=== PATIENT | male | born 1955 | race Caucasian/White ===

== ENCOUNTER 2020-02-07 13:11 | Observation (INO) ==
--- NOTE | 2020-02-07 13:55 | Emergency Department Note ---
Impression & Plan Atypical chest pain, History of two vessel coronary artery bypass graft ED Provider Note NAME: PARISH GREENBERG AGE: 64 SEX: M : 1955 ARRIVES VIA: Walk-In INFORMANT: Patient, ED PROVIDER(S): Foreign Arambula MD Chief Complaint: Chest discomfort HPI: Patient does present with some left-sided chest discomfort. The patient noticed that this morning. The patient does not complain of shortness of breath. The patient states he has been maintaining good diet and been compliant with medications. The patient states that he was in [facility] had a cardiac cath at that time and due to the severity of his disease the patient was transferred to an adjoining hospital in [facility] for a cardiac bypass. The patient denies any nausea vomiting or diaphoresis. The patient just feels as though there is a change in the left chest. The patient denies any fevers or chills. [facility] the area as the patient is from [place]. The patient denies any change in any leg swelling. The patient does not have any exertional dyspnea but has occasionally felt weak and fatigued. Patient believes that his surgical sites are healing well. ROS: See HPI for pertinent positives and negatives. A total of 10 systems were reviewed and otherwise negative. Past medical history: See below Surgical history: See below Social history: See below Physical Exam: GENERAL: Wearing glasses and a mask, NAD, non-toxic. EYE EXAM: Normal conjunctiva. PERRL, no anisocoria and EOM's grossly intact w/o pain. Chest: Midline sternotomy well-healed with no evidence of fluctuance drainage or redness. NECK: Supple, no nuchal rigidity, no adenopathy, non-tender. No signs of meningismus. LUNGS: Clear to auscultation. Normal chest wall mechanics. HEART: NSR, no MRG. ABDOMEN: Abdomen soft, non-tender, normo-active bowel sounds, no masses, no rebound or guarding. Several upper abdominal eschars healing without drainage or redness or fluctuance. BACK: No CVA TTP. SKIN: No rashes and no bruising. UPPER EXTREMITIES: Upper extremities are grossly normal. LOWER EXTREMITIES: Grossly normal, 1+ bilateral lower extremity edema without erythema that is symmetric. NEURO EXAM: A&O x3, cranial nerves II-XII grossly intact, normal speech, moves all 4 extremities on command w/o issue. Differential diagnoses: Cardiac ischemia, aortic dissection, pulmonary embolism, pneumothorax, pneumonia, pericarditis, myocarditis, esophageal rupture, GERD, cholecystitis, pancreatitis, musculoskeletal, as well as other pathologies. Course: Patient was seen and evaluated the bedside. Full history physical exam was performed. EKG: Indication: Chest discomfort Sinus rhythm with occasional fusion complexes, rate of 81, normal intervals, left axis deviation, no obvious elevations or depressions. Q waves in lateral leads. No prior EKGs for comparison. Imaging Studies: Radiology results as stated below per my review in the radiologist's interpretation: XR chest 1V portable CLINICAL HISTORY: Chest Pain pain COMPARISON STUDY: No previous studies for comparison. FINDINGS: Moderate cardiomegaly. Prior median sternotomy. Lungs are clear. Diaphragms are smooth. IMPRESSION: Moderate cardiomegaly. Otherwise negative study. ACT 112: Negative or not required by law. The above report was generated using voice recognition software. It may contain grammatical, syntax or spelling errors. Electronically signed by: Jatin Huggins M.D. 02/07/2020 2:38 PM Dictated: 02/07/20 1437 Transcribed: 02/07/20 1437 Cardiac monitoring: An order was placed for continuous cardiac monitoring. The monitor shows a rate of 90 with sinus rhythm. Procedures: Limited Point of Care Cardiac Ultrasound performed by me: Indication: Chest discomfort Findings: Limited echocardiography primarily just with an apical view revealed no obvious pericardial fluid. HR 80s. Additional findings: No obvious septal bowing. Impression: No obvious pericardial effusion MDM: Patient did present with concern for chest discomfort. Patient is recent CABG. Blood work was obtained along with an EKG and troponin. Patient was also given full dose aspirin and sublingual nitro as needed. The patient does have a mild white count of 13 but denies infectious symptoms. Mild elevation of platelet count. Patient's kidney function creatinine clearance 67 creatinine 1.5. Unknown as to what his prior is. BNP is not elevated. Troponin is not detectable. EKG with no discernible is acute ischemic change with the patient does have some Q waves. Given the patient's prior history this may be consistent with that. I did attempt to pursue performing limited [id number] cardiac ultrasound. Technically limited and difficult study but based on a somewhat limited four-chamber view the patient does not have evidence of obvious pericardial effusion. Patient did feel improved after his medications have been received. Patient did have some cardiomegaly but unsure as to what his prior is. The patient has not tachypneic nor hypoxic and has not complained of shortness of breath. Patient is not tachycardic but is on rate control medication. Given the patient's high risk na ture recent CABG and chest discomfort will be admitted for formal echo as well as trending of his cardiac enzymes. Patient is currently comfortable. I did speak with the on-call hospitalist Dr. Tobin and the patient was admitted to the medicine service. Past Med/Surg History Medical History CAD (coronary artery disease) of artery bypass graft H/O: HTN (hypertension) Hyperlipidemia Surgical History S/P CABG (coronary artery bypass graft) Social History (Updated 02/07/20 @ 14:07 by Foreign Arambula MD) Preferred Language: Icelandic Communication Ability: Effective Feels Safe at Home: Yes Smoking Status: Never smoker Hx Alcohol Use: No Hx Substance Use: No Allergies Allergies Allergy/AdvReac Type Severity Reaction Status Date / Time Penicillins Allergy turns red Verified 02/07/20 16:05 , throat swells Home Meds Home Medications Medication Instructions Recorded Confirmed acetaminophen [Tylenol] 650 mg PO QID PRN 02/07/20 02/07/20 aspirin 325 mg PO DAILY 02/07/20 02/07/20 atorvastatin 40 mg PO HS 02/07/20 02/07/20 bisacodyl [Dulcolax (bisacodyl)] 5 mg PO DAILY PRN 02/07/20 02/07/20 lisinopril 2.5 mg PO DAILY 02/07/20 02/07/20 metoprolol tartrate 12.5 mg PO Q12 02/07/20 02/07/20 nitroglycerin [Nitrostat] 0.4 mg SUBLINGUAL UD PRN 02/07/20 02/07/20 tramadol 50 mg PO Q4 PRN 02/07/20 02/07/20 Results & Data (ED) Vital Signs Vital Signs - 24 hr 02/07/20 13:43 02/07/20 14:00 02/07/20 14:30 Temperature 37.2 C Temperature Source Oral Pulse Rate 90 76 Pulse Rate [Left Finger] Pulse Rate from SpO2 Sensor 77 Respiratory Rate 20 20 Respiratory Effort / Characteristics Non-Labored Respiratory Depth Normal Blood Pressure 109/74 133/90 Blood Pressure [Left Arm] Blood Pressure Mean 85 103 Blood Pressure Mean [Left Arm] Pulse Oximetry 93 96 Oxygen Delivery Method Room Air Sepsis Recent Fever Within 48 Hours No Sepsis New/Unexplained Change in Mental Status N/A Sepsis Action Taken by Nursing No Action Required 02/07/20 15:09 02/07/20 17:09 Temperature Temperature Source Pulse Rate Pulse Rate [Left Finger] 84 86 Pulse Rate from SpO2 Sensor Respiratory Rate 23 18 Respiratory Effort / Characteristics Respiratory Depth Blood Pressure Blood Pressure [Left Arm] 119/70 122/76 Blood Pressure Mean Blood Pressure Mean [Left Arm] 86 91 Pulse Oximetry 95 98 Oxygen Delivery Method Sepsis Recent Fever Within 48 Hours Sepsis New/Unexplained Change in Mental Status Sepsis Action Taken by Alf Medications Current Medication List: was personally reviewed by me Laboratory Data Attestation: I reviewed the patient's lab results. Result diagrams: 02/07/20 13:57 02/07/20 13:57 Lab Results 02/07/20 02/07/20 02/07/20 Range/Units 13:57 13:57 13:57 WBC 13.66 H (4.8-10.8) K/uL RBC 4.93 (4.7-6.1) M/uL Hgb 14.5 (14.0-18.0) g/dL Hct 42.2 (42-52) % MCV 85.6 (80-100) fL MCH 29.4 (25-34) pg MCHC 34.4 (32-36) g/dL RDW Std Deviation 40.7 (36.4-46.3) fL RDW Coeff of Hector 13.1 (11.5-14.5) % Plt Count 496 H (130-400) K/uL MPV 9.4 (7.4-10.4) fL Immature Gran % (Auto) 0.3 % Neut % (Auto) 77.6 % Lymph % (Auto) 12.6 % Barry % (Auto) 6.1 % Eos % (Auto) 3.0 % Baso % (Auto) 0.4 % Neut # (Auto) 10.61 H (1.4-6.5) K/uL Lymph # (Auto) 1.72 (1.2-3.4) K/uL Barry # (Auto) 0.83 H (0.11-0.59) K/uL Eos # (Auto) 0.41 (0-0.5) K/uL Baso # (Auto) 0.05 (0-0.2) K/uL Immature Gran # (Auto) 0.04 H (0.00-0.02) K/uL PT 12.3 H (9.0-12.0) Seconds INR 1.2 H (0.9-1.1) APTT 29.4 (21.0-31.0) Seconds PTT Ratio 1.1 Sodium 139 (136-145) mmol/L Potassium 4.5 (3.5-5.1) mmol/L Chloride 108 H (98-107) mmol/L Carbon Dioxide 24 (21-32) mmol/L Anion Gap 7.0 (3-11) BUN 15 (7-18) mg/dl Creatinine 1.50 H (0.6-1.4) mg/dl Est Cr Clr Drug Dosing 67.1 ml/min Est GFR ( Amer) 55.8 Est GFR (Non-Af Amer) 48.2 BUN/Creatinine Ratio 10.2 (10-20) Glucose 99 (70-99) mg/dl Calcium 9.4 (8.5-10.1) mg/dl Phosphorus 3.3 (2.5-4.9) mg/dl Magnesium 2.3 (1.8-2.4) mg/dl Total Bilirubin 0.5 (0.2-1) mg/dl AST 21 (15-37) U/L ALT 46 (12-78) U/L Alkaline Phosphatase 90 (45-117) U/L Total Creatine Kinase 56 (39-308) U/L Troponin I < 0.015 (0-0.045) ng/ml NT-Pro-B Natriuret Pep 847 (0-900) pg/ml Total Protein 7.9 (6.4-8.2) gm/dl Albumin 3.5 (3.4-5.0) gm/dl Globulin 4.4 H (2.5-4.0) gm/dl Albumin/Globulin Ratio 0.8 L (0.9-2) Lipase 131 (73-393) U/L Administered Medications Nitroglycerin (Nitrostat) 0.4 mg SL UD PRN PRN Reason: Chest Pain Stop: 03/08/20 14:18 Last Admin: 02/07/20 14:31 Dose: 0.4 mg Documented by: [id number] Discontinued Medications Aspirin (Aspirin) 324 mg PO NOW STA Stop: 02/07/20 14:20 Last Admin: 02/07/20 14:31 Dose: 324 mg Documented by: [id number] Discharge Plan Visit Data Chief Complaint: Cardiac Assessment Stated Complaint: CARDIAC ASSESSMENT ED Provider: Foreign Arambula Discharge Problem: Atypical chest pain, History of two vessel coronary artery bypass graft Forms Stand Alone Forms: [employer] Prescriptions Prescriptions: No Action atorvastatin 40 mg Tablet 40 mg PO HS RF: 0 acetaminophen [Tylenol] 325 mg Tablet 650 mg PO QID PRN (Reason: Pain) RF: 0 tramadol 50 mg Tablet 50 mg PO Q4 PRN (Reason: Pain) RF: 0 aspirin 325 mg Tablet,Delayed Release (Dr/Ec) 325 mg PO DAILY RF: 0 nitroglycerin [Nitrostat] 0.4 mg Tablet, Sublingual 0.4 mg sublingual UD PRN (Reason: Chest Pain) RF: 0 bisacodyl [Dulcolax (bisacodyl)] 5 mg Tablet,Delayed Release (Dr/Ec) 5 mg PO DAILY PRN (Reason: Constipation) RF: 0 lisinopril 2.5 mg Tablet 2.5 mg PO DAILY RF: 0 metoprolol tartrate 25 mg Tablet 12.5 mg PO Q12 RF: 0
[2020-02-07] MEDS ORDERED: ASPIRIN CHEW 324 MG PO STA (14:19)
[2020-02-07] MEDS ORDERED: NITROGLYCERIN SL 0.4 MG/TAB TAB SL PRN ×2 (14:19→18:47)
[2020-02-07 14:27] LABS: Basophils # (auto) 0.05 K/uL (0-0.2); Basophils % (auto) 0.4 %; Eosinophils # (auto) 0.41 K/uL (0-0.5); Hematocrit (blood only) 42.2 % (42-52); Hemoglobin 14.5 g/dL (14.0-18.0); Immature Granulocytes # (auto) 0.04 K/uL (0.00-0.02); Immature Granulocytes % (auto) 0.3 %; Lymphocytes # (auto) 1.72 K/uL (1.2-3.4); Lymphocytes % (auto) 12.6 %; Mean Corpuscular Hemoglobin 29.4 pg (25-34); Mean Corpuscular Hgb Conc 34.4 g/dL (32-36); Mean Corpuscular Volume 85.6 fL (80-100); Mean Platelet Volume 9.4 fL (7.4-10.4); Monocytes # (auto) 0.83 K/uL (0.11-0.59); Monocytes % (auto) 6.1 %; Neutrophils # (auto) 10.61 K/uL (1.4-6.5); Neutrophils % (auto) 77.6 %; Platelet Count 496 K/uL (130-400); RDW Coefficient of Variation 13.1 % (11.5-14.5); RDW Standard Deviation 40.7 fL (36.4-46.3); Red Blood Count 4.93 M/uL (4.7-6.1); White Blood Count 13.66 K/uL (4.8-10.8)
[2020-02-07 14:37] LABS: Alanine Aminotransferase 46 U/L (12-78); Albumin Level 3.5 gm/dl (3.4-5.0); Aspartate Aminotransferase 21 U/L (15-37); BUN Creatinine Ratio 10.2 (10-20); Blood Urea Nitrogen 15 mg/dl (7-18); Calcium 9.4 mg/dl (8.5-10.1); Carbon Dioxide 24 mmol/L (21-32); Chloride 108 mmol/L (98-107); Creatinine Clr Calc Pharmacy 67.1 ml/min; Est GFR (African American) 55.8; Est GFR (Non-African American) 48.2; Glucose 99 mg/dl (70-99); INR 1.2 (0.9-1.1); Lipase 131 U/L (73-393); Magnesium 2.3 mg/dl (1.8-2.4); Partial Thromboplastin Ratio 1.1; Partial Thromboplastin Time 29.4 Seconds (21.0-31.0); Potassium 4.5 mmol/L (3.5-5.1); Prothrombin Time 12.3 Seconds (9.0-12.0); Sodium 139 mmol/L (136-145)
--- NOTE | 2020-02-07 14:39 | XRay Report ---
XR chest 1V portable CLINICAL HISTORY: Chest Pain pain COMPARISON STUDY: No previous studies for comparison. FINDINGS: Moderate cardiomegaly. Prior median sternotomy. Lungs are clear. Diaphragms are smooth. IMPRESSION: Moderate cardiomegaly. Otherwise negative study. ACT 112: Negative or not required by law. The above report was generated using voice recognition software. It may contain grammatical, syntax or spelling errors. Electronically signed by: Jatin Huggins M.D. 02/07/2020 2:38 PM
[2020-02-07 14:40] LABS: Albumin Globulin Ratio 0.8 (0.9-2); Alkaline Phosphatase 90 U/L (45-117); Bilirubin,Total 0.5 mg/dl (0.2-1); Creatine Kinase 56 U/L (39-308); Globulin 4.4 gm/dl (2.5-4.0); NT Pro B Type Natriuretic Pept 847 pg/ml (0-900); Phosphorus 3.3 mg/dl (2.5-4.9); Total Protein 7.9 gm/dl (6.4-8.2); Troponin I < 0.015 ng/ml (0-0.045)
--- NOTE | 2020-02-07 15:40 | Emergency Department Note ---
ED Visit Note This patient was seen in concert with Dr. Arambula and we discussed and agreed upon the history, physical, assessment and plan. See attending's note for details. . Resident Activity Tracking Resident Involvement: Resident Care Provided Care Provided: Adult ED
--- NOTE | 2020-02-07 17:31 | History & Physical Report ---
Date of Service February 07, 2020 Assessment & Plan (1) History of two vessel coronary artery bypass graft: 64yo C male s/p cardiac catheterization with subsequent CABG x 2V performed two weeks ago at [facility] in [place], [place] presenting with chest discomfort, palpitations. EKG with no acute ischemic changes but slightly low voltage. Troponin x 1 negative. Patient is hemodynamically stable, no JVD, no hypoxia. Doubt ACS at this time. ?post-cardiac catheterization inflammatory syndrome, ?development of post-op effusion. Low suspicion for PE - Wells score = 1.5 for recent surgery only. -Observation to medical floor with telemetry -Obtain hospital records from cardiac catheterization -Check 2D echo complete -Trend troponin q 8 hours x 3 sets -Continue ASA, Metoprolol, Lisinopril and Atorvastatin Present on Admission?: Yes (2) Atypical chest pain: As above. -Trend troponin -Obtain 2D echo -Continue ASA, Lisinopril, Atorvastatin and Metoprolol F/E/N - Heplock. Electrolytes WNL. Heart healthy diet as tolerated Ppx - Continue ASA 325mg po daily, Lovenox 40 Code - Full Dispo - Observation to medical with telemetry History of Present Illness Chief Complaint: chest discomfort, palpitations Primary Care Provider: Thomas Castanoclover Tee is a pleasant 64yo c male with history of CAD s/p cardiac catheterization with CABG x 2V performed two weeks ago at [facility] in [place]. Patient has been doing well post-operatively. He has temporarily moved in with his daughter to assist him with driving and recovery after his surgery. 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 Patient presents today with complaints of palpitations, fluttering sensation in his chest and throat as well as some discomfort and tightness in his left upper chest and throat. He reports feeling somewhat fatigued and mildly dyspneic with exertion. No additional complaints at this time. Patient has no concerns for Covid-19 ER Course: ASA 325mg, Nitro Allergies Allergy/AdvReac Type Severity Reaction Status Date / Time Penicillins Allergy turns red Verified 02/07/20 16:05 , throat swells Home Medications Home Medications Medication Instructions Recorded Confirmed Type acetaminophen [Tylenol] 650 mg PO QID PRN 02/07/20 02/07/20 History aspirin 325 mg PO DAILY 02/07/20 02/07/20 History atorvastatin 40 mg PO HS 02/07/20 02/07/20 History bisacodyl [Dulcolax (bisacodyl)] 5 mg PO DAILY PRN 02/07/20 02/07/20 History lisinopril 2.5 mg PO DAILY 02/07/20 02/07/20 History metoprolol tartrate 12.5 mg PO Q12 02/07/20 02/07/20 History nitroglycerin [Nitrostat] 0.4 mg SUBLINGUAL UD PRN 02/07/20 02/07/20 History tramadol 50 mg PO Q4 PRN 02/07/20 02/07/20 History Past Med/Surg History Medical History CAD (coronary artery disease) of artery bypass graft H/O: HTN (hypertension) Hyperlipidemia Surgical History S/P CABG (coronary artery bypass graft) Family History (Updated 02/07/20 @ 18:47 by Delmy Tobin DO) Father Coronary heart disease, Onset Age: 54 Social History (Updated 02/07/20 @ 14:07 by Foreign Arambula MD) Preferred Language: Zambian Communication Ability: Effective Feels Safe at Home: Yes Smoking Status: Never smoker Hx Alcohol Use: No Hx Substance Use: No Review of Systems Review of Systems: All systems reviewed & are unremarkable except as noted in HPI & below Physical Exam Physical Exam: General: patient resting comfortably, NAD, non-toxic in appearance, AA&O x 4, became dyspneic with ambulation to the restroom and returning to bed Skin: warm, dry, no rashes or lesions, sternotomy site well approximated with no bleeding/dehiscence/erythema or drainage. Stable sternum HEENT: NC/AT, PERRL, EOMI, anicteric sclera, conjunctiva without injection, external ear normal to inspection and nontender, nares patent, moist mucus membranes, dentition intact, no oropharyngeal lesions, neck supple, trachea midline, no LAD, no thyromegaly, no JVD Heart: +S1/S2, regular, no m/r/g Lungs: equal air entry bilaterally, no rales/rhonchi/wheezes Abd: +BS, soft, NT/ND, no masses/organomegaly/ascites Ext: warm, 2+ pulses in UE/LE bilaterally, no clubbing/cyanosis, trace pitting edema bilateral LE Neuro: nonfocal, patient AA&O x 4, speech intact, no facial droop, moving all extremities on command with equal strength 5/5 Results & Data Results & Data ([facility]) Vital Signs (Past 12 Hours) Vital Signs Temp Pulse Pulse Resp BP BP Pulse Ox 02/07/20 15:09 84 23 119/70 95 02/07/20 14:30 76 20 133/90 96 02/07/20 13:43 37.2 C 90 20 109/74 93 Laboratory Results Lab Results 02/07/20 02/07/20 02/07/20 Range/Units 13:57 13:57 13:57 WBC 13.66 H (4.8-10.8) K/uL RBC 4.93 (4.7-6.1) M/uL Hgb 14.5 (14.0-18.0) g/dL Hct 42.2 (42-52) % MCV 85.6 (80-100) fL MCH 29.4 (25-34) pg MCHC 34.4 (32-36) g/dL RDW Std Deviation 40.7 (36.4-46.3) fL RDW Coeff of Hector 13.1 (11.5-14.5) % Plt Count 496 H (130-400) K/uL MPV 9.4 (7.4-10.4) fL Immature Gran % (Auto) 0.3 % Neut % (Auto) 77.6 % Lymph % (Auto) 12.6 % [place] % (Auto) 6.1 % Eos % (Auto) 3.0 % Baso % (Auto) 0.4 % Neut # (Auto) 10.61 H (1.4-6.5) K/uL Lymph # (Auto) 1.72 (1.2-3.4) K/uL [place] # (Auto) 0.83 H (0.11-0.59) K/uL Eos # (Auto) 0.41 (0-0.5) K/uL Baso # (Auto) 0.05 (0-0.2) K/uL Immature Gran # (Auto) 0.04 H (0.00-0.02) K/uL PT 12.3 H (9.0-12.0) Seconds INR 1.2 H (0.9-1.1) APTT 29.4 (21.0-31.0) Seconds PTT Ratio 1.1 Sodium 139 (136-145) mmol/L Potassium 4.5 (3.5-5.1) mmol/L Chloride 108 H (98-107) mmol/L Carbon Dioxide 24 (21-32) mmol/L Anion Gap 7.0 (3-11) BUN 15 (7-18) mg/dl Creatinine 1.50 H (0.6-1.4) mg/dl Est Cr Clr Drug Dosing 67.1 ml/min Est GFR ( Amer) 55.8 Est GFR (Non-Af Amer) 48.2 BUN/Creatinine Ratio 10.2 (10-20) Glucose 99 (70-99) mg/dl Calcium 9.4 (8.5-10.1) mg/dl Phosphorus 3.3 (2.5-4.9) mg/dl Magnesium 2.3 (1.8-2.4) mg/dl Total Bilirubin 0.5 (0.2-1) mg/dl AST 21 (15-37) U/L ALT 46 (12-78) U/L Alkaline Phosphatase 90 (45-117) U/L Total Creatine Kinase 56 (39-308) U/L Troponin I < 0.015 (0-0.045) ng/ml NT-Pro-B Natriuret Pep 847 (0-900) pg/ml Total Protein 7.9 (6.4-8.2) gm/dl Albumin 3.5 (3.4-5.0) gm/dl Globulin 4.4 H (2.5-4.0) gm/dl Albumin/Globulin Ratio 0.8 L (0.9-2) Lipase 131 (73-393) U/L Diagnostic Findings XR chest 1V portable CLINICAL HISTORY: Chest Pain pain COMPARISON STUDY: No previous studies for comparison. FINDINGS: Moderate cardiomegaly. Prior median sternotomy. Lungs are clear. Diaphragms are smooth. IMPRESSION: Moderate cardiomegaly. Otherwise negative study. ACT 112: Negative or not required by law. The above report was generated using voice recognition software. It may contain grammatical, syntax or spelling errors. ECG Additional Comments: The study shows SR at 81bpm with fusion complexes, left axis deviation, RE=392, QRS=92, IKv=744, low voltage Code Status & VTE Plan Code Status Full Code PG Care Time/CCT Total # of Minutes Spent Total Time Spent with Patient: Total time spent is greater than 50% in coordination of care (as documented) at patient's floor/unit and/or counseling patient: Coding Level of Care Code 26394 OBS Care - Level 2 Diagnoses History of two vessel coronary artery bypass graft Z95.1 Atypical chest pain R07.89
[2020-02-07] MEDS ORDERED: ACETAMINOPHEN 325 MG TAB PO PRN ×2 (18:47)
[2020-02-07] MEDS ORDERED: TRAMADOL HCL 50 MG TABLET PO PRN (18:47)
[2020-02-07] MEDS ORDERED: ONDANSETRON INJ 2 MG/ML 2 ML VIAL IV PRN (18:47)
[2020-02-07] MEDS ORDERED: bisacodyL 5 MG TABEC PO PRN (18:47)
[2020-02-07] MEDS: METOPROLOL TARTRATE 25 MG TAB PO SCH (20:26)
[2020-02-07] MEDS ORDERED: ATORVASTATIN 40 MG TAB PO SCH (21:00)
[2020-02-08] MEDS ORDERED: PERFLUTREN LIPID MICROSPHERE (DEFINITY) IV ONE (07:39)
[2020-02-08] MEDS: METOPROLOL TARTRATE 25 MG TAB PO SCH (08:03)
--- NOTE | 2020-02-08 08:26 | Hospitalist Progress Note ---
Date of Service February 08, 2020 Assessment & Plan (1) History of two vessel coronary artery bypass graft: 64yo C male s/p cardiac catheterization with subsequent CABG x 2V performed two weeks ago at [facility] in [place], [place] presenting with chest discomfort, palpitations. EKG with no acute ischemic changes but slightly low voltage. Troponin x 1 negative. Patient is hemodynamically stable, no JVD, no hypoxia. Doubt ACS at this time. ?post-cardiac catheterization inflammatory syndrome, ?development of post-op effusion. Low suspicion for PE - Wells score = 1.5 for recent surgery only. -Observation to medical floor with telemetry -Obtain hospital records from cardiac catheterization -Check 2D echo complete -Trend troponin q 8 hours x 3 sets -Continue ASA, Metoprolol, Lisinopril and Atorvastatin (2) Atypical chest pain: As above. -Trend troponin -Obtain 2D echo -Continue ASA, Lisinopril, Atorvastatin and Metoprolol F/E/N - Heplock. Electrolytes WNL. Heart healthy diet as tolerated Ppx - Continue ASA 325mg po daily, Lovenox 40 Code - Full Dispo - Observation to medical with telemetry Admission and Anticipated Discharge Date Admission Date: February 07, 2020 Results & Data Results & Data ([facility]) Vital Signs (Past 12 Hours) Vital Signs Temp Pulse Pulse Resp BP Pulse Ox 02/08/20 07:11 99.0 F 74 18 116/77 96 02/08/20 03:36 98.1 F 73 18 113/72 94 02/08/20 02:32 72 02/07/20 23:59 75 02/07/20 23:46 98.6 F 73 19 107/72 95 PG Care Time/CCT Total # of Minutes Spent Total Time Spent with Patient: Total time spent is greater than 50% in coordination of care (as documented) at patient's floor/unit and/or counseling patient: Coding Diagnoses History of two vessel coronary artery bypass graft Z95.1 Atypical chest pain R07.89
[2020-02-08] MEDS ORDERED: ASPIRIN 325 MG ECTAB PO SCH (09:00)
[2020-02-08] MEDS ORDERED: ENOXAPARIN INJ 40 MG/0.4 ML SYR SQ SCH (09:00)
--- NOTE | 2020-02-08 15:37 | XCELERA ---
[id number]
--- NOTE | 2020-02-08 17:49 | Discharge Summary ---
Date of Service February 08, 2020 Admission HPI Per Admitting Provider Kenyon Tee is a pleasant 64yo c male with history of CAD s/p cardiac catheterization with CABG x 2V performed two weeks ago at [facility] in [place]. Patient has been doing well post-operatively. He has temporarily moved in with his daughter to assist him with driving and recovery after his surgery. Patient reports having a silent [place] approximately one year ago which affected the apex of his heart. Patient presents today with complaints of palpitations, fluttering sensation in his chest and throat as well as some discomfort and tightness in his left upper chest and throat. He reports feeling somewhat fatigued and mildly dyspneic with exertion. No additional complaints at this time. Patient has no concerns for Covid-19 ER Course: ASA 325mg, Nitro Principal Diagnosis Atypical chest pain Discharge Exam The patient appeared well Vital signs as documented. Lungs are clear to auscultation and appear unlabored Cardiac exam, Rhythm is regular.. No murmurs, rubs or gallops. 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 Neurologic exam is alert and oriented, no focal loss of strength or sensation Skin is without bruises or rashes Psychologically is without concerns for anxiety or depression Discharge Data Allergies Allergy/AdvReac Type Severity Reaction Status Date / Time Penicillins Allergy turns red Verified 02/07/20 16:05 , throat swells Consultations 02/07/20 15:47 ED Decision to Admit Stat 02/08/20 14:40 Consult Health Information Management Routine Ordered Studies 02/07/20 15:14 US point of care ultrasound Stat Hospital Course (1) History of two vessel coronary artery bypass graft: 64yo C male s/p cardiac catheterization with subsequent CABG x 2V performed two weeks ago at [facility] in [place], [place] presenting with chest discomfort, palpitations. EKG with no acute ischemic changes but slightly low voltage. Troponin x 1 negative. Patient is hemodynamically stable, no JVD, no hypoxia. Doubt ACS at this time. ?post-cardiac catheterization inflammatory syndrome, ?development of post-op effusion. Low suspicion for PE - Wells score = 1.5 for recent surgery only. Negative troponin trend echocardiogram without effusion or significant changes will discharge with -Continue ASA, Metoprolol, Lisinopril and Atorvastatin I did phone his tobacco wrapping machine tender in [place] and spoke to the office staff relating information and hopefully sending records from this hospital stay to that this is office (2) Atypical chest pain: [place] to be noncardiac Total Time Total Time Spent Total Time Spent (In Minutes): It required greater than 30 minutes to prepare this patient for discharge which included 2 visits during the day call to the patient's physician in [place] and personally discussing echocardiogram with tobacco wrapping machine tender on-call Discharge Plan Discharge Items Patient Disposition: Home - Self-Care Reason For Visit: CHEST PAIN Discharge Diagnosis: chest pain Activity: Per Instructions section Non-emergency contact: Primary Care Provider and 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 Call non-emergency contact if: you have any medication questions and your symptoms worsen Follow-up/Referrals: Thomas Butcher [Other] Diet: Regular Addtl Attending Provider Instructions: please rest and recover, follow up with your tobacco wrapping machine tender Pending Studies at Discharge: Yes (final echocardiogram read, preliminary is w ithout issues ) Stand-Alone Forms: My [employer], Smoking Cessation Medications and DC Order Prescriptions: Continued atorvastatin 40 mg Tablet 40 mg PO HS RF: 0 acetaminophen [Tylenol] 325 mg Tablet 650 mg PO QID PRN (Reason: Pain) RF: 0 tramadol 50 mg Tablet 50 mg PO Q4 PRN (Reason: Pain) RF: 0 aspirin 325 mg Tablet,Delayed Release (Dr/Ec) 325 mg PO DAILY RF: 0 nitroglycerin [Nitrostat] 0.4 mg Tablet, Sublingual 0.4 mg sublingual UD PRN (Reason: Chest Pain) RF: 0 bisacodyl [Dulcolax (bisacodyl)] 5 mg Tablet,Delayed Release (Dr/Ec) 5 mg PO DAILY PRN (Reason: Constipation) RF: 0 lisinopril 2.5 mg Tablet 2.5 mg PO DAILY RF: 0 metoprolol tartrate 25 mg Tablet 12.5 mg PO Q12 RF: 0 Discharge Orders: Discharge Order (Routine); Ordered 02/08/20 Ordered By: Daren White Admission Data Admit Date/Time: 02/07/20 17:10 Attending Provider: Daren White Admit Provider: Delmy Tobin Primary Care Provider: Thomas Butcher Other Providers: Mahad,Delmy M Other Interventions: Discharge Summary Assessment (RN) Last Done: 02/08/20 15:42 Coding Level of Care Code D/C Day Management >30 mins Diagnoses History of two vessel coronary artery bypass graft Z95.1 Atypical chest pain R07.89
--- NOTE | 2020-02-08 19:04 | Electrocardiogram Report ---
Test Reason : Blood Pressure : / mmHG Vent. Rate : 081 BPM Atrial Rate : 081 BPM P-R Int : 154 ms QRS Dur : 092 ms QT Int : 372 ms P-R-T Axes : 053 -41 090 degrees QTc Int : 432 ms Sinus rhythm Left axis deviation Low voltage QRS Poor R wave progression, consider anterior NC vs. lead placement vs. LVH Abnormal ECG Confirmed by Loco Curran ([id number]) on 02/08/2020 7:04:08 PM Referred By: REFERRED SELF Confirmed By:Howard Curran
== END 2020-02-08 17:59 | disposition home or self-care (01) ==
LOC: 2W 13:11 → ED 13:11 → SUATTDRO 17:10 → 2W 18:22